=== PATIENT | female | born 1995 | race Caucasian/White ===

== ENCOUNTER 2021-03-11 20:43 | Emergency (ER) | payer OTHER, SELFPAY ==
--- NOTE | ~2021-03-11 | CT_ITS ---
EXAMINATION: CT abdomen pelvis wo con EXAM DATE: 03/11/2021 22:37 INDICATION: Left flank pain. TECHNIQUE: Spiral CT of the abdomen and pelvis was performed without contrast. Axial, coronal and sag ittal images were reviewed. The dose-length product (DLP) for this examination was 671.70 mGy-cm. T he exposure was tailored according to patient size (auto mA exposure control), and iterative reconstr uction (ASIR) was used as additional dose reduction technique. There is no prior study for compariso n. FINDINGS: Nonobstructing 3 mm right inferior calyceal stone. There is a left UVJ obstructing 3 mm sto ne, mild left-sided hydroureteronephrosis. No significant perinephric fat stranding. The uterus and ovaries are unremarkable, no adnexal mass. The bladder is unremarkable. The liver, spleen, adrenal glands and pancreas are unremarkable. Gallbladder is unremarkable. No biliary obstruction. There i s no retroperitoneal or pelvic lymphadenopathy. The appendix is normal. The stomach and small bowel are unremarkable. There is expected amount of c olonic stool. No free intraperitoneal gas. The heart is normal in size. There are no pericardial or pleural effusions. The lung bases are unremarkable. Chronic L5 spondylolysis without spondyloli sthesis. IMPRESSION: 1. Left UVJ 3 mm stone, mild hydroureteronephrosis. 2. Right inferior calyceal stone. Reviewed, dictated and finalized at location A.
[2021-03-11 20:23] VITALS: BP 145/92; PULSE 105; RESP 18; TEMP 36.7; O2SAT 100
[2021-03-11] MEDS: KETOROLAC 30 MG/ML VIAL (*BKC) IV PUSH (21:26)
[2021-03-11 21:49] LABS: Basophils Percent Auto 0.3 % (0.2-1.2); Eosinophils Absolute Auto 0.2 K/mm3 (0-0.3); Eosinophils Percent Auto 1.2 % (0-4.4); Hematocrit 34.4 % (37.0-47.0); Hemoglobin 11.2 g/dL (12.0-15.0); Immature Granulocyte Absolute 0.05 K/mm3 (0.00-0.031); Immature Granulocyte Percent A 0.4 % (0-0.5); Immature Platelet Fraction Pct 15.5 % (0.9-11.2); Lymphocytes Absolute Auto 2.35 K/mm3 (0.9-3.2); Lymphocytes Percent Auto 19.3 % (18.3-44.2); Mean Corpuscular HGB Conc 32.6 g/dl (32-36); Mean Corpuscular Hemoglobin 29.4 pg (26-34); Mean Corpuscular Volume 90.3 fl (80-100); Mean Platelet Volume 13.1 fl (7.4-10.4); Monocytes Absolute Auto 0.7 K/mm3 (0.1-0.6); Monocytes Percent Auto 5.4 % (2.6-8.5); Neutrophils Absolute Auto 8.9 K/mm3 (1.3-6.7); Neutrophils Percent Auto 73.4 % (45.5-73.1); Platelet Count Result 160 k/mm3 (150-375); Red Blood Count 3.81 M/mm3 (4.2-5.4); White Blood Count 12.2 K/mm3 (4.5-10.0)
[2021-03-11 21:52] LABS: Add Urine Microscopic? YES; Appearance Urine Clear (Clear); Bacteria Urine Trace /hpf; Bilirubin Urine Negative (Negative); Blood Urine 3+ (Negative); Color Urine Yellow (Yellow); Glucose Urine UA Negative (Negative); Ketones Urine Negative (Negative); Leukocyte Esterase Ur Trace LEU/UL (Negative); Mucus Urine Rare /lpf; Nitrate Urine Negative (Negative); Protein Urine 1+ mg/dL (Negative); RBC Urine >75 /hpf (0-2); Specific Grav Ur 1.017 (1.001-1.035); Squamous Epithelial Cell Urine Few /hpf (Few); Urobilinogen Urine Negative mg/dL (<2.0)
[2021-03-11 22:23] LABS: Alanine Aminotransferase 14 U/L (4-35); Albumin Level 4.2 g/dL (3.5-5.1); Alkaline Phosphatase 68 U/L (38-126); Anion Gap 9 mmol/L (8-16); Aspartate Amino Transferase 21 U/L (14-36); Bilirubin,Total 0.3 mg/dL (0.2-1.3); Blood Urea Nitrogen 18 mg/dL (7-17); Calcium 9.2 mg/dL (8.4-10.2); Carbon Dioxide 24 mmol/L (22-30); Chloride 107 mmol/L (98-107); Estimated CRCL calculation 111 ml/min; Estimated Glomerular Filt Rate > 60; Glucose 114 mg/dL (65-110); Lipase 46 U/L (23-300); Potassium 4.1 mmol/L (3.4-5.0); Sodium 140 mmol/L (137-145)
--- NOTE | 2021-03-11 22:42 | ED.ABDPAIN ---
HPI - Abdominal Pain General Chief Complaint: Abdominal Pain Stated Complaint: flank/ back pain Time Seen by Provider: 03/11/21 21:01 Source: patient Mode of arrival: ambulatory Limitations: no limitations History of Present Illness HPI narrative: 25-year-old female Complains of abrupt onset of left flank pain radiating to the left groin earlier today Pain was 8 out of 10 at maximum, 5 out of 10 now, not aggravated or alleviated by anything that she has noticed She did vomit which did not change things Her last period just ended She has no previous abdominal operations Denies diarrhea, fever, dysuria, or gross hematuria Related Data Allergies Allergy/AdvReac Type Severity Reaction Status Date / Time nickel Allergy Unknown Other Verified 03/11/21 22:53 Review of Systems Review of Systems: All systems reviewed & are unremarkable except as noted in HPI and below Constitutional: Constitutional: Reports no additional constitutional complaints, Denies chills, Denies fever(s) and Denies headache(s) Eyes: Eyes: Reports no additional eye complaints and Denies change in vision ENT: Denies headache(s) and Denies sore throat Cardiovascular: Cardiovascular: Denies chest pain and Denies dyspnea Respiratory: Respiratory: Denies cough and Denies dyspnea Gastrointestinal: Gastrointestinal: Reports abdominal pain, Denies diarrhea, Reports nausea and Reports vomiting Genitourinary: Genitourinary: Denies hematuria, Denies urinary frequency, Denies nocturia, Denies dysuria and Reports flank pain Musculoskeletal: Musculoskeletal: Denies deformity, Denies arthralgias, Denies joint swelling and Denies numbness Integumentary/Breasts: Skin/Breast: Denies rash and Denies wounds Neurologic: Denies headache(s), Denies focal weakness and Denies numbness Psychiatric: Psychiatric: Reports no additional psychiatric complaints Endocrine: Endocrine: Reports no additional endocrine complaints Hematologic/Lymphatic: Hematologic/Lymphatic: Reports no additional hematologic/lymphatic complaints Allergic/Immunologic: Allergic/Immunologic: Reports no additional allergic/immunologic complaints Exam Const: General: cooperative, healthy appearing, no acute distress and alert Nutritional Appearance: obese Orientation/consciousness: patient oriented x3 (alert) HENMT: Head: normal to inspection, normocephalic and atraumatic Ears: external ears normal General nose exam: no epistaxis Eyes: Conjunctivae: conjunctivae normal EOM: EOMs intact bilaterally Neck: Neck: normal visual inspection, supple and no JVD Resp: Effort & Inspection: normal respiratory effort and not labored Auscultation: clear to auscultation bilaterally, no rales, no rhonchi, no wheezes and other (BS =) Cardio: Rate: regular rate Rhythm: regular rhythm Heart sounds: no murmurs GI: GI Palp: Yes Soft to palpation, No Tenderness to palpation present (GI), No Guarding due to palpation present (GI) and No Rebound tenderness present : General: Yes no CVA tenderness Skin: General skin exam: normal color and no rashes or lesions noted Neuro: General: patient oriented x3 (alert) and moves all extremities Speech: normal speech Extrem: General: normal to inspection and no pedal edema Psych: Affect: normal affect Course Course Emergency Course: Better after meds Discussed results of CT with patient Vital Signs Vital signs: Vital Signs Temperature 36.7 C 03/11/21 20:23 Pulse Rate 105 H 03/11/21 20:23 Respiratory Rate 18 03/11/21 20:23 Blood Pressure 145/92 H 03/11/21 20:23 Pulse Oximetry 100 03/11/21 20:23 Temperature 36.7 C 03/11/21 20:23 Pulse Rate 105 H 03/11/21 20:23 Respiratory Rate 18 03/11/21 20:23 Blood Pressure 145/92 H 03/11/21 20:23 Pulse Oximetry 100 03/11/21 20:23 MDM - Abdominal Pain Lab Data Result diagrams: 03/11/21 21:36 03/11/21 22:05 Labs: Lab Results 03/11/21 03/11/21
[2021-03-11 23:00] VITALS: BP 140/76; PULSE 97; RESP 18; O2SAT 100
[2021-03-12 00:11] VITALS: BP 141/72; PULSE 89; RESP 18; O2SAT 98
== END 2021-03-12 00:13 | disposition home or self-care (01) ==
PROVIDERS: Emergency Provider Emergency Medicine; PCP Family Medicine Adolescent Medicine
DX: N13.2 Hydronephrosis with renal and ureteral calculous obstruction (principal)
CPT/HCPCS: 36415; 74176; 80053; 81001; 81025; 83690; 85025; 85055; 87086; 87088; 96374; 99284; J1885

== ENCOUNTER 2021-12-05 07:30 | Emergency (ER) | payer OTHER, SELFPAY ==
--- NOTE | ~2021-12-05 | XR_ITS ---
EXAMINATION: XR foot LT min 3V DATE: 12/05/2021 07:53 INDICATION: Left foot injury and pain. TECHNIQUE: 4 views of left foot were obtained. COMPARISON: Left foot radiographs 08/19/2014 FINDINGS: Bone alignment is normal. No fracture. Joint spaces are normal. IMPRESSION: 1. No fracture. Reviewed, dictated and finalized at location A. IMPRESSION: 1. No fracture.
[2021-12-05 07:33] VITALS: BP 131/76; PULSE 103; RESP 18; O2SAT 99
--- NOTE | 2021-12-05 08:12 | ED.GENADULT ---
HPI - General Adult General Chief complaint: Extremity Injury, Lower Stated complaint: left foot injury Time Seen by Provider: 12/05/21 07:34 History of Present Illness HPI narrative: 25-year-old female presenting to the emergency department for evaluation of left foot pain that occurred after a fall on Saturday. Patient states she was walking in the trailer when she tripped over the dog and injured her left foot. Patient states she does have some pain with ambulation. Patient denies any knee pain or ankle pain. Patient does have pain with ambulation but states she is able to walk without difficulty. Patient does not take any blood thinners. Related Data Allergies Allergy/AdvReac Type Severity Reaction Status Date / Time nickel Allergy Unknown Other Verified 12/05/21 07:37 Review of Systems Review of Systems: CONSTITUTIONAL: Denies fever, chills, or sweats. EYES: Denies visual changes, redness, or discharge. ENT: Denies rhinorrhea, congestion, sore throat, or otalgia. CARDIOVASCULAR: Denies chest pain, palpitations, or edema. RESPIRATORY: Denies cough or dyspnea. GASTROINTESTINAL: Denies abdominal pain, nausea, vomiting, or diarrhea. GENITOURINARY: Denies dysuria or hematuria. SKIN: Denies rash or itching. MUSCULOSKELETAL: See HPI NEUROLOGIC: Denies headache, numbness, or weakness. Exam Narrative: APPEARANCE: Well appearing, no pain, no distress, well-nourished. HEAD: normocephalic, atraumatic. EYES: PERRLA/EOMI, conjunctivae clear. NOSE: Normal no drainage MUSCULOSKELETAL: Moves all extremities. Strength/ROM intact, mild medial left foot tenderness to palpation. No ecchymosis. NEURO: Alert. Cranial nerves II through XII intact. Grossly intact SKIN: Warm, dry. Normal Color Course Vital Signs Vital signs: Vital Signs Pulse Rate 103 H 12/05/21 07:33 Respiratory Rate 18 12/05/21 07:33 Blood Pressure 131/76 12/05/21 07:33 Pulse Oximetry 99 12/05/21 07:33 Oxygen Delivery Room Air 12/05/21 07:33 Pulse Rate 103 H 12/05/21 07:33 Respiratory Rate 18 12/05/21 07:33 Blood Pressure 131/76 12/05/21 07:33 Pulse Oximetry 99 12/05/21 07:33 Oxygen Delivery Room Air 12/05/21 07:33 Medical Decision Making Vital Signs Vital Signs: Vital Signs Pulse Rate 103 H 12/05/21 07:33 Respiratory Rate 18 12/05/21 07:33 Blood Pressure 131/76 12/05/21 07:33 Pulse Oximetry 99 12/05/21 07:33 Oxygen Delivery Room Air 12/05/21 07:33 Pulse Rate 103 H 12/05/21 07:33 Respiratory Rate 18 12/05/21 07:33 Blood Pressure 131/76 12/05/21 07:33 Pulse Oximetry 99 12/05/21 07:33 Oxygen Delivery Room Air 12/05/21 07:33 Imaging Data Radiologist's impression: Impressions Foot X-Ray 12/05/21 07:56 IMPRESSION: 1. No fracture. Discharge Plan Discharge Clinical Impression: Foot injury Qualifiers: Encounter type: initial encounter Laterality: left Qualified Code(s): S99.922A - Unspecified injury of left foot, initial encounter Patient Disposition: Home, Self-Care Condition: Stable Instructions: Antibiotic Form Additional Instructions: Tylenol and ibuprofen for pain control. Ashwin wrap for comfort. Weightbearing as tolerated. Have close follow-up with your primary care physician. Prescriptions: No Action hydrocodone-acetaminophen 5-325 mg tablet 1 tablet PO Q6H PRN (Reason: pain) Qty: 14 0RF tamsulosin [Flomax] 0.4 mg capsule 0.4 mg PO DAILY Qty: 5 0RF Follow-up/Referrals: Chris Lopez MD [Primary Care Provider] - Stand Alone Forms: Work/School Release IP
== END 2021-12-05 08:29 | disposition home or self-care (01) ==
PROVIDERS: Emergency Provider Emergency Medicine; PCP Family Medicine Adolescent Medicine
DX: S99.922A Unspecified injury of left foot, initial encounter (principal); W01.0XXA Fall on same level from slipping, tripping and stumbling without subsequent striking against object, initial encounter
CPT/HCPCS: 73630; 99283

== ENCOUNTER 2021-12-18 09:55 | Emergency (ER) | payer OTHER, SELFPAY ==
[2021-12-18 10:03] VITALS: BP 120/79; PULSE 97; RESP 16; TEMP 36.6; O2SAT 100
--- NOTE | 2021-12-18 10:09 | ED.URI ---
HPI - URI/Sore Throat General Chief Complaint: Upper Respiratory Infection Stated Complaint: Sore Throat Time Seen by Provider: 12/18/21 10:10 Source: patient Mode of arrival: ambulatory Limitations: no limitations History of Present Illness HPI Narrative: 26 yo F presents with c/o sore throat since yesterday. Reports pain mostly to L side. No fever/chills. No headache or bodyaches. States just sore throat . No other symptoms. All systems reviewed and negative except as noted above. Related Data Home Medications Medication Instructions Recorded Confirmed No Home Medications 12/18/21 12/18/21 Allergies Allergy/AdvReac Type Severity Reaction Status Date / Time nickel Allergy Unknown Other Verified 12/18/21 10:04 Review of Systems Review of Systems: CONSTITUTIONAL: Denies fever, chills, or sweats. EYES: Denies visual changes, redness, or discharge. ENT: Denies rhinorrhea, congestion. Reports sore throat. CARDIOVASCULAR: Denies chest pain, palpitations, or edema. RESPIRATORY: Denies cough or dyspnea. GASTROINTESTINAL: Denies abdominal pain, nausea, vomiting, or diarrhea. GENITOURINARY: Denies dysuria or hematuria. SKIN: Denies rash or itching. MUSCULOSKELETAL: Denies back pain, joint pain, or myalgia. NEUROLOGIC: Denies headache, numbness, or weakness. PSYCHIATRIC: Denies anxiety or depression. All other systems reviewed are negative, except as documented in HPI. PMFSH Comments At time of signature, agree with nursing past medical, surgical, social and family history. There is no relevant family history pertinent to the presenting complaint. Exam Narrative: GENERAL: This is a well-nourished, well-developed patient, in no apparent distress. HEAD: normocephalic, atraumatic. EYES: PERRL. Sclera clear/white. Vision is grossly intact. EARS: External ears normal, auditory canals clear and without drainage, TMs normal without perforation. Hearing grossly intact. NOSE: External nose normal with no obvious nasal discharge, nares without redness, no rhinorrhea. THROAT: Mucous membranes moist, posterior pharynx clear. Tonsil stone to left tonsil with mild erythema and swelling. NECK: Neck supple, non-tender without lymphadenopathy, masses or thyromegaly. CARDIOVASCULAR: Regular rate and rhythm without murmurs, gallops, or rubs. RESPIRATORY: Clear to auscultation. Breath sounds equal bilaterally. No wheezes, rales, or rhonchi. SKIN: warm, Dry, intact with no suspicious lesions or rash, good texture and turgor. NEURO: awake, alert, and oriented to person, place and time. There were no obvious focal neurologic abnormalities. EXTREMITIES: No joint tenderness, effusion, or edema noted. Course Course Level of Care: Express Care Visit Vital Signs Vital signs: Vital Signs Temperature 36.6 C 12/18/21 10:03 Pulse Rate 97 12/18/21 10:03 Respiratory Rate 16 12/18/21 10:03 Blood Pressure 120/79 12/18/21 10:03 Pulse Oximetry 100 12/18/21 10:03 Oxygen Delivery Room Air 12/18/21 10:03 Temperature 36.6 C 12/18/21 10:03 Pulse Rate 97 12/18/21 10:03 Respiratory Rate 16 12/18/21 10:03 Blood Pressure 120/79 12/18/21 10:03 Pulse Oximetry 100 12/18/21 10:03 Oxygen Delivery Room Air 12/18/21 10:03 Reviewed MDM - URI/Sore Throat MDM Narrative Medical decision making narrative: Negative rapid strep. Attempted to remove tonsil stone with ear curette but patient's gag reflex would not tolerate. Recommend she go home and gargle with salt water or mouthwash. Patient is aware of diagnosis, understands and agrees to treatment plan. Anticipatory guidance given. Patient agrees to follow-up as directed and is aware of reasons to seek care at the emergency department. Portions of this record may have been created with voice recognition software Lab Data Labs: Strep Screen Presumptive Negative *(Reference Range: Negative)* Disch
== END 2021-12-18 10:24 | disposition home or self-care (01) ==
PROVIDERS: Emergency Provider Nurse Practitioner Family; PCP Family Medicine Adolescent Medicine
DX: J35.8 Other chronic diseases of tonsils and adenoids (principal)
CPT/HCPCS: 87081; 87880; 99213; G0463

== ENCOUNTER 2025-01-16 10:56 | Emergency (ER) | payer OTHER, SELFPAY ==
--- NOTE | ~2025-01-16 | XR_ITS ---
XR foot RT min 3V 01/16/2025 11:19 INDICATION: Right foot pain PROCEDURE: 4 views right foot COMPARISON: 01/02/2014 FINDINGS: Fracture, dislocation or subluxation is not identified. Lisfranc joint intact. The soft tis sues appear within normal limits. No foreign bodies are identified. IMPRESSION: 1: NO ACUTE BONE OR JOINT ABNORMALITY IDENTIFIED. Reviewed, dictated and finalized at location A.
[2025-01-16 11:04] VITALS: BP 134/91; PULSE 98; RESP 18; TEMP 36.6; O2SAT 99
--- NOTE | 2025-01-16 11:12 | ED.LOWEXIN ---
HPI - Extremity Injury (Lower) General Chief Complaint: Extremity Injury, Lower Stated Complaint: right foot pain Time Seen by Provider: 01/16/25 11:00 Source: patient and RN notes reviewed Mode of arrival: ambulatory Limitations: no limitations History of Present Illness HPI Narrative: 29-year-old female Presents Express Care complaining of injury to right foot. Patient denies any apparent injury to her right foot. She said she woke up with a throbbing sensation throughout her foot. Patient says is worse to bear weight. Patient says if you squeeze her foot on the left side that makes the pain worse. Patient's has been taking Tylenol or ibuprofen with relief. Patient denies any numbness, tingling or any other injuries. Patient has a denies any significant past medical history. Related Data Allergies Allergy/AdvReac Type Severity Reaction Status Date / Time nickel Allergy Unknown Other Verified 01/16/25 11:00 Review of Systems Review of Systems: CONSTITUTIONAL: Denies fever, chills, or sweats. EYES: Denies visual changes, redness, or discharge. ENT: Denies rhinorrhea, congestion, sore throat, or otalgia. CARDIOVASCULAR: Denies chest pain, palpitations, or edema. RESPIRATORY: Denies cough or dyspnea. GASTROINTESTINAL: Denies abdominal pain, nausea, vomiting, or diarrhea. GENITOURINARY: Denies dysuria or hematuria. SKIN: Denies rash, wound, or itching. MUSCULOSKELETAL: Denies back pain, joint pain, or myalgia. Positive for right foot pain. NEUROLOGIC: Denies headache, numbness, or weakness. PSYCHIATRIC: Denies anxiety or depression. All other systems reviewed are negative, except as documented in HPI. PMFSH Comments At the time of my signature, I reviewed and agree with the nursing past medical, surgical, social, and family history. There is no relevant family history pertinent to the patient complaint. Exam Narrative: GENERAL: This is a well-nourished, well-developed adult, in no apparent distress. They are non ill-appearing, nontoxic appearing. Patient is obese. HEAD: normocephalic, atraumatic. EYES: Sclera clear/white. Vision is grossly intact. Conjunctiva normal. Extraocular movement intact. EARS: External ears normal Hearing grossly intact. NOSE: External nose normal THROAT: Mucous membranes moist NECK: Neck supple CARDIOVASCULAR: Regular rate and rhythm RESPIRATORY: Respiratory rate normal, respiratory effort nonlabored, no respiratory distress NEURO: awake, alert, and oriented to person, place and time. There were no obvious focal neurologic abnormalities. EXTREMITIES: Right foot: No obvious deformity, injury, swelling, bruising, redness. Non tenderness for full range of motion of right ankle. Tenderness to palpation to lateral and medial foot. No pain palpating the plantar surface of the foot. Capillary refill less than 3 seconds. Right pedal Pulse 2 +palpable. Normal sensation. Neurovascular status intact distal injury. Patient awoke alert toes. BACK: Nontender without deformity. Course Course Emergency Course: Portions of this record may have been created with voice recognition software Level of Care: Express Care Visit Vital Signs Vital signs: Vital Signs Temperature 97.9 F 01/16/25 11:04 Pulse Rate 98 01/16/25 11:04 Respiratory Rate 18 01/16/25 11:04 Blood Pressure 134/91 H 01/16/25 11:04 Pulse Oximetry 99 01/16/25 11:04 Oxygen Delivery Room Air 01/16/25 11:04 Temperature 97.9 F 01/16/25 11:04 Pulse Rate 98 01/16/25 11:04 Respiratory Rate 18 01/16/25 11:04 Blood Pressure 134/91 H 01/16/25 11:04 Pulse Oximetry 99 01/16/25 11:04 Oxygen Delivery Room Air 01/16/25 11:04 Reviewed MDM - Extremity Injury (Lower) MDM Narrative Medical decision making narrative: X-ray of the right foot shows. Patient given Ashwin wrap for comfort. Discussed physical exam findings. Advised supportive measures and signs/symptoms to go to the ER. Pt is appropriate for outpt treatment and f/u. Differential Diagnosis Differential diagnosis: Likely ankle sprain and strain, ankle fracture and other (Foot sprain, foot strain, tendinopathy, plantar fasciitis) Critical Care Time Critical Care Time Critical Care Time: No Discharge Plan Discharge Clinical Impression: Injury of foot, right Qualifiers: Encounter type: initial encounter Qualified Code(s): S99.921A - Unspecified injury of right foot, initial encounter Patient Disposition: Home Condition: Stable Instructions: Foot Sprain (ED) Additional Instructions: The x-ray right foot is negative for any fracture or acute findings. Rest and elevate the leg; bear weight as tolerated Apply ice 15-20 minute intervals several times a day Keep it wrapped with ASHWIN or use a soft ankle splint Motrin 600mg -800mg every 8 hours, alternate with Tylenol 1000mg every 8 hours as needed Follow up with your primary care provider or [employer] manager in 1-2 weeks. Patient Language: Japanese Follow-up/Referrals: Fabio Pennington DPM [Physician] - Chris Lopez MD [Primary Care Provider] - Time of Disposition: 11:42
== END 2025-01-16 11:44 | disposition home or self-care (01) ==
PROVIDERS: PCP Family Medicine Adolescent Medicine
DX: S99.921A Unspecified injury of right foot, initial encounter (principal); X58.XXXA Exposure to other specified factors, initial encounter
CPT/HCPCS: 73630; 99213; G0463